=== PATIENT | female | born 1980 | race Caucasian/White ===

== ENCOUNTER 2019-02-22 11:11 | Emergency (ER) | payer OTHER ==
[~2019-02-22] VITALS: Ht 162.6 cm; Wt 114.2 kg
[~2019-02-22 11:11] MED LIST: TRIA15CR55 TOP
[2019-02-22 11:14] VITALS: BP 135/63; PULSE 81; RESP 18; Ht 162.6 cm; Wt 114.2 kg
== END 2019-02-22 11:56 | disposition home or self-care (01) ==
LOC: FTE 11:11
DX: L30.9 Dermatitis, unspecified (principal)
CPT/HCPCS: 99283